=== PATIENT | female | born 1955 | race Caucasian/White ===

== ENCOUNTER 2016-05-27 05:55 | Day surgery (SDC) | payer OTHER ==
[2016-05-26 14:39] LABS: MANUAL DIFF NEEDED? NO
[2016-05-26 15:05] LABS: BASO% 0.4 % (0.0-0.8); EOS# 0.11 X1000 (0.0-0.7); EOS% 1.4 % (0.0-10.0); HEMATOCRIT 40.5 % (37.0-47.0); HEMOGLOBIN 13.5 g/dL (12.0-16.0); IMM GRAN# 0.03 X1000 (0.0-0.04); IMM GRAN% 0.4 % (0.0-0.5); LYMPH# 2.13 X1000 (1.2-3.4); LYMPH% 27.7 % (20.5-51.1); MCH 30.1 PG (27-31); MCHC 33.3 g/dL (33-37); MCV 90.4 FL (81-99); MONO# 0.65 X1000 (0.11-0.59); MONO% 8.4 % (1.7-9.3); MPV 10.4 FL (7.4-10.4); NEUT% 61.7 % (42.2-75.2); PLT 224 X1000 (130-400); RBC 4.48 XMIL (4.2-5.4)
[2016-05-26 15:14] LABS: CALCIUM 9.4 mg/dL (8.8-10.2); POTASSIUM 4.1 mmol/L (3.5-5.1)
--- NOTE | 2016-05-26 15:31 | EKG Report ---
Test Performed on : 05/26/2016 2:26:08 PM Test Reason : PAT Blood Pressure : / mmHG Vent. Rate : 063 BPM Atrial Rate : 063 BPM P-R Int : 138 ms QRS Dur : 088 ms QT Int : 364 ms P-R-T Axes : 056 -05 008 degrees QTc Int : 372 ms Normal sinus rhythm. Minimal voltage criteria for LVH, may be normal variant Cannot rule out Anterior infarct , age undetermined Abnormal ECG When compared with ECG of 12-APR-2013 06:02, Nonspecific T wave abnormality now evident in Anterior leads Confirmed by Maylin MILIAN, Roland Scott ([id number]) on 05/27/2016 1:37:23 PM
[2016-05-27] MEDS ORDERED: REGLAN ONE ×2 (06:10)
[2016-05-27] MEDS ORDERED: TRANSDERM-SCOP ONE (06:10)
[2016-05-27] MEDS ORDERED: PEPCID ONE (06:10)
[2016-05-27] MEDS ORDERED: LR 1,000 ML ONE ×3 (06:11→10:16)
[2016-05-27] MEDS ORDERED: KEFZOL 1 GM/D5W 50 ML ONE (06:12)
[2016-05-27] MEDS ORDERED: BACITRACIN ONE (06:30)
[2016-05-27] MEDS ORDERED: NS 1,000 ML ONE (06:30)
[2016-05-27] MEDS ORDERED: FENTANYL ONE (09:08)
[2016-05-27] MEDS ORDERED: DIPRIVAN 1% ONE (09:08)
[2016-05-27] MEDS: DEMEROL ONE ×2 (09:15→09:25)
[2016-05-27] MEDS ORDERED: DEMEROL ONE (09:47)
[2016-05-27] MEDS ORDERED: PHENERGAN ONE ×2 (09:47→10:13)
[2016-05-27] MEDS ORDERED: NORCO-10 ONE (10:13)
[2016-05-27] MEDS ORDERED: ROBINUL ONE (10:15)
[2016-05-27] MEDS ORDERED: LUBRIFRESH PM OPH OINTMENT ONE (10:15)
[2016-05-27] MEDS ORDERED: ZOFRAN ONE (10:15)
[2016-05-27] MEDS ORDERED: NEOSTIGMINE ONE (10:15)
[2016-05-27] MEDS ORDERED: QUELICIN (DOSE) ONE (10:16)
[2016-05-27] MEDS ORDERED: DECADRON ONE (10:16)
[2016-05-27] MEDS ORDERED: XYLOCAINE-MPF 2% ONE (10:16)
[2016-05-27 12:50] VITALS: BP 105/63
--- NOTE | 2016-05-27 14:11 | OPERATIVE NOTE ---
PROCEDURE DATE: 05/27/2016 PROCEDURE PERFORMED: Replacement of deflated left reconstructive breast implant. SURGEON: Júnior Pereyra MD ICD-10 DIAGNOSIS CODE: Z85.3 - Personal history of breast cancer. CPT CODE: 54120 - Immediate insertion of breast implant. INDICATIONS FOR PROCEDURE: This patient is a 60-year-old white female who underwent bilateral mastectomies in the past by me and she had her 2nd stage reconstruction where the expanders were removed and the implants were placed 12/21/2013. At that point, she was replaced with Style 363 LF implants that were 510 mL in size and filled to 535 on both sides. Over the past week and a half, she has noted deflation on the left side reconstructive implant and it is deflating and she needs it replaced. DESCRIPTION OF PROCEDURE: The patient was brought to the operating room after she was marked in outpatient surgery in the sitting position. She went to the operating room, had general anesthesia, and was prepped and draped. Both breasts were prepped and draped down to the level of the operating room table. A 3 cm incision was made anteriorly in the old mastectomy scar. Dissection was carried down to the level of the pocket. The implant was removed and noted to have a pinhole leak on the back superior surface. The pocket was scored with electrocautery to reopen it and then a new implant was placed in the pocket and filled to the appropriate volume. It was still felt to be tight, so that implant was removed and some additional pocket scoring was made to make the implant fit better. A 10 mm flat Alexandre-Franklin drain was placed into the pocket and exited through a separate stab incision on the left side. The implant was replaced, filled to 535 mL of fluid and now the size and shape was found to be good. The pocket was closed with interrupted 3-0 Polysorb sutures on a taper needle, then interrupted 3-0 Polysorb sutures in the fat, 4-0 Polysorb deep dermal sutures, and a 5-0 Biosyn subcuticular stitch. The drain was secured with silk drain stitches. We took the opportunity, since the patient was in the operating room, to do some liposuction on the lateral sides of her chest where some fat was still retained from her previous mastectomy dog ear. We did this on both sides. Through a separate stab incision in the anterior axillary fold. She tolerated it well. The total amount of liposuction in the aspirate was 375 mL. Those incisions were closed with 5-0 Polysorb interrupted deep dermal sutures and then 5-0 nylon stitches. The implant that was placed in the patient was a Style 363 LF 510 implant. It was filled to 535, the maximum fill volume. The serial number was [id number].
== END 2016-05-27 13:05 | disposition home or self-care (01) ==
LOC: OPS 05:55
PROVIDERS: ATTEND Surgery Plastic and Reconstructive Surgery
DX: T85.43XA Leakage of breast prosthesis and implant, initial encounter (principal); Z85.3 Personal history of malignant neoplasm of breast; I10 Essential (primary) hypertension; K21.9 Gastro-esophageal reflux disease without esophagitis; M19.90 Unspecified osteoarthritis, unspecified site; E11.9 Type 2 diabetes mellitus without complications; Z90.13 Acquired absence of bilateral breasts and nipples; Z79.899 Other long term (current) drug therapy
CPT/HCPCS: 80048; 82948; 85025; 93005; 93010; J0330; J0690; J1100; J2175; J2405; J2550; J3010; J7030; J7120; J2710